=== PATIENT | female | born 1995 | race African-American/Black ===

== ENCOUNTER → 2018-12-21 | Outpatient (CLI) | payer OTHER ==
--- NOTE | 2018-12-21 19:06 | REP ---
First trimester obstetric ultrasound for dating and viability: The studies performed transabdominal, endovaginal and Doppler ultrasound assessment. There is an intrauterine gestational sac with a pole and yolk sac. The heart rate is 193 beats per minute. The pole crown-rump length is a 0.3 cm corresponding to 5 weeks 6 days gestational age/VIVIENNE 08/17/2019. Gestational age by LMP is 6 weeks 3 days/VIVIENNE 08/13/2019. There is no subchorionic hematoma. There is a right ovarian hemorrhagic cyst, likely a corpus luteum. There is a normal size yolk sac measuring 2.5 mm. Electronically Signed by Odell Esposito MD 12/21/2018 06:57 P
== END ==
LOC: M RAD 17:39
PROVIDERS: ATTEND Nurse Practitioner Family
DX: Z32.01 Encounter for pregnancy test, result positive (principal); Z36.89 Encounter for other specified antenatal screening; Z3A.01 Less than 8 weeks gestation of pregnancy